=== PATIENT | male | born 1995 | race Caucasian/White ===

== ENCOUNTER 2019-08-14 22:49 | Emergency (ER) | payer SELFPAY ==
[~2019-08-14] VITALS: Ht 170.2 cm; Wt 95.3 kg
[2019-08-14 23:08] VITALS: BP 146/85
--- NOTE | 2019-08-14 23:10 | NUR ---
PT TO [facility].
--- NOTE | 2019-08-15 | NUR ---
PT AMBULATORY TO ER BED 11
--- NOTE | 2019-08-15 01:30 | NUR ---
PT C/O CELLULITS TO LT LOWER BACK X4 DAYS. PT STATES 5/10 BURNING PAIN THAT RADIATES TO LT LEG. PT STATES ITS A COMMON OCCURENCE SO HE TOOK A PREVIOUS ANTIBIOTIC. DENIES FEVER. NO PAIN MEDS TAKEN. PT SITTING IN BED, VSS AT THIS TIME. MEDHX: DENIES ALLERGIES: DENIES
[2019-08-15] MEDS ORDERED: LIDOCAINE/EPI 1% 1:100000 20 ML VIAL INJ ONE (01:35)
--- NOTE | 2019-08-15 03:02 | NUR ---
MEDICATION AT BEDSIDE, TO BE USED BY MD FOR PROCEDURE
[2019-08-15] MEDS ORDERED: ACETAMINOPHEN 325 MG TAB PO ONE (03:20)
[2019-08-15] MEDS ORDERED: IBUPROFEN 600 MG TAB PO ONE (03:20)
--- NOTE | 2019-08-15 03:26 | NUR ---
AT BEDSIDE PERFOMING PROCEDURE.
--- NOTE | 2019-08-15 03:35 | NUR ---
PT TOLERATED PROCEDURE WELL. VSS AT THIS TIME. PT STATES 1/10 PAIN
[2019-08-15 03:55] VITALS: BP 142/86
--- NOTE | 2019-08-15 03:55 | NUR ---
Patient discharged with v/s stable. Written and verbal after care instructions given and explained. Patient alert, oriented and verbalized understanding of instructions. Ambulatory with steady gait. All questions addressed prior to discharge. ID band removed. Patient advised to follow up with PMD. Rx of KEFLEX AND NORCO WAS given. Patient educated on indication of medication including possible reaction and side effects. Opportunity to ask questions provided and answered.
== END 2019-08-15 03:55 | disposition home or self-care (01) ==
LOC: MED 22:49
DX: L02.212 Cutaneous abscess of back [any part, except buttock and flank] (principal); L03.312 Cellulitis of back [any part except buttock and flank]
CPT/HCPCS: 99283; J2001

== ENCOUNTER 2019-12-05 14:47 | Emergency (ER) | payer OTHER ==
[~2019-12-05] VITALS: Ht 172.7 cm; Wt 95.3 kg
[2019-12-05 14:50] VITALS: BP 134/60
--- NOTE | 2019-12-05 14:53 | NUR ---
TO LOBBY A/W BED AMBULATORY
--- NOTE | 2019-12-05 15:26 | NUR ---
Patient ambulated to bed 9. RN evaluating patient at bedside.
--- NOTE | 2019-12-05 15:29 | NUR ---
LUMP ON HIS BACK FOR MONTHS PT FEEL DISCOMFORT WHILE HE WORKING OUT,NO TRAUMA NOR INJURY . DENIES N/V/D; SKIN IS PINK/WARM/DRY; AAOX4 WITH EVEN AND STEADY GAIT; LUNGS CLEAR BL; HR EVEN AND REGULAR; PT DENIES ANY FEVER, CP, SOB, OR COUGH AT THIS TIME; PATIENT STATES PAIN OF 5/10 AT THIS TIME; VSS; PATIENT POSITIONED FOR COMFORT; HOB ELEVATED; BEDRAILS UP X1; BED DOWN. ER MD MADE AWARE OF PT STATUS.
[2019-12-05 16:02] VITALS: BP 134/60
--- NOTE | 2019-12-05 16:02 | NUR ---
Patient discharged with v/s stable. Written and verbal after care instructions given and explained. Patient verbalized understanding. Ambulatory with steady gait. All questions addressed prior to discharge. Advised to follow up with PMD.
== END 2019-12-05 16:02 | disposition home or self-care (01) ==
LOC: MED 14:47
DX: R22.2 Localized swelling, mass and lump, trunk (principal)
CPT/HCPCS: 99281

== ENCOUNTER 2021-10-15 09:29 | Emergency (ER) | payer OTHER ==
[~2021-10-15] VITALS: Ht 172.7 cm; Wt 89.9 kg
[2021-10-15 09:42] VITALS: BP 130/84
--- NOTE | 2021-10-15 09:48 | NUR ---
PATIENT AMBULATED TO BED 2.
[2021-10-15] MEDS ORDERED: ALUMINUM HYD/MAG/SIMETHICONE 30 ML, DICYCLOMINE HCL LIQUID 20 MG, LIDOCAINE VISCOUS 2% ... PO ONE ×3 (10:10)
--- NOTE | 2021-10-15 10:15 | NUR ---
26/M BIB SELF WITH C/O ABDOMINAL PAIN, NAUSEA, VOMITING AND DIARRHEA SINCE THURSDAY. PATIENT STATES SYMPTOMS CAME ON GRADUALLY AND HAVE BEEN WORSENING, STATING HE HAS NOT BEEN ABLE TO EAT OR DRINK USUAL. PATIENT REPORTS TAKING PEPTO AND UNKNOWN MEDICATION FOR DIARRHEA WITH NO RELIEF. REPORTS 6/10 ACHING ABDOMINAL PAIN THAT IS UNPROVOKED AND NONRADIATING, ABDOMEN IS NON TENDER TO TOUCH. PATIENT DENIES CP, SOB, FEVER OR CHILLS.
[2021-10-15] MEDS ORDERED: NACL 0.9% 1,000 ML IV ONE (10:20)
[2021-10-15] MEDS ORDERED: ONDANSETRON 4 MG/2 ML VIAL IVP ONE (10:20)
[2021-10-15] MEDS ORDERED: FAMOTIDINE 20 MG/2 ML VIAL IVP ONE (10:20)
[2021-10-15] MEDS ORDERED: DICYCLOMINE HCL LIQUID 10 MG/5 ML UDC ONE (10:26)
[2021-10-15] MEDS ORDERED: ALUMINUM HYD/MAG/SIMETHICONE 30 ML UDC ONE (10:26)
[2021-10-15 10:35] LABS: BASOPHILS % (AUTO) 0.3 % (0.0-2.0); EOSINOPHILS # (AUTO) 0.2 K/uL (0-0.4); EOSINOPHILS % (AUTO) 3.2 % (0.0-4.0); HEMATOCRIT 46.2 % (36-52); HEMOGLOBIN 15.6 g/dL (12.0-18.0); LYMPHOCYTES # (AUTO) 1.7 K/uL (2.0-11.5); LYMPHOCYTES % (AUTO) 31.9 % (20.5-51.1); MEAN CORPUSCULAR HEMOGLOBIN 30 pg (27-31); MEAN CORPUSCULAR HGB CONC 34 g/dL (33-37); MEAN CORPUSCULAR VOLUME 87.4 fL (80-94); MONOCYTES # (AUTO) 0.4 K/uL (0.8-1.0); MONOCYTES % (AUTO) 8.3 % (1.7-9.3); NEUTROPHILS % (AUTO) 56.3 % (42.2-75.2); PLATELET COUNT (AUTO) 288 K/uL (140-450); RED BLOOD CELL COUNT(AUTO) 5.29 MIL/uL (4.20-6.10); RED CELL DISTRIBUTION WIDTH 13.6 % (11.6-13.7); WHITE BLOOD COUNT (AUTO) 5.4 K/uL (4.8-10.8)
--- NOTE | 2021-10-15 10:50 | NUR ---
SANDI SWAB COLLECTED AND HANDED TO RES COUNSELOR.
[2021-10-15 10:51] LABS: ALBUMIN 3.8 g/dL (3.4-5.0); ANION GAP 11.2 (8-16); CARBON DIOXIDE 29.6 mmol/L (21-32); POTASSIUM 3.8 mmol/L (3.5-5.1); TOTAL BILIRUBIN 0.2 mg/dL (0.0-1.0)
[2021-10-15] MEDS ORDERED: ONDA-188 PO (12:27)
[2021-10-15] MEDS ORDERED: FAMO-90 PO (12:27)
[2021-10-15 12:45] VITALS: BP 120/70
--- NOTE | 2021-10-15 12:45 | NUR ---
Patient discharged with v/s stable. Written and verbal after care instructions ABOUT ABDOMINAL PAIN AND VIRAL ILLNESS given and explained. Patient alert, oriented and verbalized understanding of instructions. Ambulatory with steady gait. All questions addressed prior to discharge. ID band removed. Patient advised to follow up with PMD. Rx of PEPCID AND ZOFRAN ODT given.
[2021-10-15 14:09] LABS: APPEARANCE,URINE BLOODY (CLEAR); BILIRUBIN,URINE NEGATIVE (NEGATIVE); BLOOD, URINE 1+ (NEGATIVE); COLOR,URINE YELLOW (YELLOW); LEUKOCYTE ESTERASE ,URINE NEGATIVE (NEGATIVE); NITRITE, URINE NEGATIVE (NEGATIVE); UGLUCOSE NEGATIVE (NEGATIVE)
[2021-10-15 15:25] LABS: RBC,URINE 11-20 (MOD) /HPF (0-5); WBC,URINE 0-5 /HPF (0-5)
== END 2021-10-15 12:45 | disposition home or self-care (01) ==
LOC: MED 09:29
DX: K52.9 Noninfective gastroenteritis and colitis, unspecified (principal); B34.9 Viral infection, unspecified; R31.9 Hematuria, unspecified; Z20.822 Contact with and (suspected) exposure to COVID-19; Z79.899 Other long term (current) drug therapy
CPT/HCPCS: 36415; 80053; 81001; 83690; 85025; 87426; 96361; 96374; 96375; 99284; J2405; J3490; J7030

== ENCOUNTER 2022-03-31 04:54 | Emergency (ER) | payer OTHER ==
[~2022-03-31] VITALS: Ht 172.7 cm; Wt 98.6 kg
[~2022-03-31 04:54] MED LIST: FAMO-90 PO; ONDA-188 PO
[2022-03-31 05:01] VITALS: BP 130/63
--- NOTE | 2022-03-31 05:05 | NUR ---
PT TAKEN TO BED 09.
--- NOTE | 2022-03-31 05:15 | NUR ---
ER MD AT BEDSIDE EXAMINING PT
--- NOTE | 2022-03-31 05:42 | NUR ---
NO NURSING INTERVENTIONS NEEDED. PT FAVIO
== END 2022-03-31 05:42 | disposition home or self-care (01) ==
LOC: MED 04:54
DX: L67.8 Other hair color and hair shaft abnormalities (principal); Z79.899 Other long term (current) drug therapy
CPT/HCPCS: 99281

== ENCOUNTER 2022-10-06 04:35 | Emergency (ER) | payer OTHER ==
[~2022-10-06] VITALS: Ht 172.7 cm; Wt 97.5 kg
[2022-10-06 04:53] VITALS: BP 135/69
--- NOTE | 2022-10-06 05:11 | NUR ---
Dr. Vaughn examining patient.
--- NOTE | 2022-10-06 06:10 | NUR ---
Blood for labwork drawn from right arm by corporate development intern. Patient tolerated well.
[2022-10-06 06:13] LABS: BASOPHILS % (AUTO) 0.4 % (0.0-2.0); EOSINOPHILS # (AUTO) 0.2 K/uL (0-0.4); EOSINOPHILS % (AUTO) 2.5 % (0.0-4.0); HEMATOCRIT 44.7 % (36-52); LYMPHOCYTES # (AUTO) 2.4 K/uL (2.0-11.5); LYMPHOCYTES % (AUTO) 29.9 % (20.5-51.1); MEAN CORPUSCULAR HEMOGLOBIN 29 pg (27-31); MEAN CORPUSCULAR HGB CONC 34 g/dL (33-37); MEAN CORPUSCULAR VOLUME 86.9 fL (80-94); MONOCYTES # (AUTO) 1.2 K/uL (0.8-1.0); MONOCYTES % (AUTO) 14.3 % (1.7-9.3); NEUTROPHILS # (AUTO) 4.3 K/uL (1.8-7.7); NEUTROPHILS % (AUTO) 52.9 % (42.2-75.2); PLATELET COUNT (AUTO) 250 K/uL (140-450); RED BLOOD CELL COUNT(AUTO) 5.14 MIL/uL (4.20-6.10); RED CELL DISTRIBUTION WIDTH 13.4 % (11.6-13.7); WHITE BLOOD COUNT (AUTO) 8.1 K/uL (4.8-10.8)
[2022-10-06 06:32] LABS: APPEARANCE,URINE CLEAR (CLEAR); BILIRUBIN,URINE NEGATIVE (NEGATIVE); BLOOD, URINE TRACE-I (NEGATIVE); COLOR,URINE YELLOW (YELLOW); LEUKOCYTE ESTERASE ,URINE NEGATIVE (NEGATIVE); NITRITE, URINE NEGATIVE (NEGATIVE); UGLUCOSE NEGATIVE (NEGATIVE)
[2022-10-06 06:43] LABS: WBC,URINE 0-5 /HPF (0-5)
[2022-10-06 06:44] LABS: OTHER CASTS, URINE None Seen /LPF (None Seen)
[2022-10-06 07:02] LABS: ALBUMIN 3.7 g/dL (3.4-5.0); ANION GAP 10.7 (8-16); CARBON DIOXIDE 30.9 mmol/L (21-32); CREATININE 1.2 mg/dL (0.6-1.3); POTASSIUM 3.6 mmol/L (3.5-5.1); TOTAL BILIRUBIN 0.2 mg/dL (0.0-1.0)
[2022-10-06] MEDS ORDERED: DICYCLOMINE 20 MG/2 ML VIAL IM ONE (07:20)
[2022-10-06] MEDS ORDERED: BEN10 PO (07:21)
[2022-10-06 07:45] VITALS: BP 112/72
--- NOTE | 2022-10-06 07:46 | NUR ---
Patient discharged with v/s stable. Written and verbal after care instructions ABOUT DIARRHEA given and explained. Patient alert, oriented and verbalized understanding of instructions. Ambulatory with steady gait. All questions addressed prior to discharge. ID band removed. Patient advised to follow up with PMD. Rx of BENTYL given. Patient educated on indication of medication including possible reaction and side effects. Opportunity to ask questions provided and answered.
== END 2022-10-06 07:46 | disposition home or self-care (01) ==
LOC: MED 04:35
DX: R10.9 Unspecified abdominal pain (principal)
CPT/HCPCS: 36415; 80053; 81001; 83690; 85025; 96372; 99283; J0500

== ENCOUNTER 2023-03-18 12:05 | Emergency (ER) | payer OTHER ==
[~2023-03-18] VITALS: Ht 172.7 cm; Wt 100.8 kg
[~2023-03-18 12:05] MED LIST changes: +BEN10 PO
[2023-03-18 12:15] VITALS: BP 130/84
--- NOTE | 2023-03-18 13:06 | NUR ---
RESTING IN BED, EXAM DONE BY MID LEVEL PROVIDER
[2023-03-18 13:10] LABS: BASOPHILS % (AUTO) 0.6 % (0.0-2.0); EOSINOPHILS # (AUTO) 0.1 K/uL (0-0.4); EOSINOPHILS % (AUTO) 1.4 % (0.0-4.0); HEMATOCRIT 45.5 % (36-52); HEMOGLOBIN 15.1 g/dL (12.0-18.0); LYMPHOCYTES # (AUTO) 3.2 K/uL (2.0-11.5); LYMPHOCYTES % (AUTO) 44.7 % (20.5-51.1); MEAN CORPUSCULAR HEMOGLOBIN 29 pg (27-31); MEAN CORPUSCULAR HGB CONC 33 g/dL (33-37); MEAN CORPUSCULAR VOLUME 86.6 fL (80-94); MONOCYTES # (AUTO) 0.7 K/uL (0.8-1.0); MONOCYTES % (AUTO) 9.2 % (1.7-9.3); NEUTROPHILS # (AUTO) 3.1 K/uL (1.8-7.7); NEUTROPHILS % (AUTO) 44.1 % (42.2-75.2); PLATELET COUNT (AUTO) 264 K/uL (140-450); RED BLOOD CELL COUNT(AUTO) 5.26 MIL/uL (4.20-6.10); RED CELL DISTRIBUTION WIDTH 13.4 % (11.6-13.7); WHITE BLOOD COUNT (AUTO) 7.1 K/uL (4.8-10.8)
[2023-03-18] MEDS ORDERED: DOCU-299 PO (13:25)
[2023-03-18] MEDS ORDERED: ACET-10509 PO (13:25)
[2023-03-18 13:50] LABS: ALBUMIN 4.3 g/dL (3.4-5.0); CARBON DIOXIDE 29.1 mmol/L (21-32); CREATININE 1.4 mg/dL (0.6-1.3); POTASSIUM 4.1 mmol/L (3.5-5.1); TOTAL BILIRUBIN 0.4 mg/dL (0.0-1.0)
--- NOTE | 2023-03-18 14:35 | NUR ---
Patient discharged with v/s stable. Written and verbal after care instructions FOR RECTAL BLEEDING given and explained. Patient alert, oriented and verbalized understanding of instructions. Ambulatory with steady gait. All questions addressed prior to discharge. ID band removed. Patient advised to follow up with PMD. Rx of TYLENOL XTRA STRENGTH AND COLACE given. Opportunity to ask questions provided and answered.
== END 2023-03-18 14:35 | disposition home or self-care (01) ==
LOC: MED 12:05
DX: K62.5 Hemorrhage of anus and rectum (principal); Z79.899 Other long term (current) drug therapy
CPT/HCPCS: 36415; 80053; 85025; 99283

== ENCOUNTER 2024-03-22 20:33 | Emergency (ER) | payer OTHER ==
[~2024-03-22] VITALS: Ht 170.2 cm; Wt 104.3 kg
[~2024-03-22 20:33] MED LIST changes: +ACET-10509 PO; +DOCU-299 PO
[2024-03-22 20:40] VITALS: BP 139/82; PULSE 109; RESP 16; TEMP 97; O2SAT 100
[2024-03-22 21:06] VITALS: BP 132/82; PULSE 98; RESP 18; TEMP 97
[2024-03-22 21:07] VITALS: O2SAT 100
[2024-03-22] MEDS: NACL 0.9% 1,000 ML IV ONE (21:08)
[2024-03-22 21:19] LABS: BASOPHILS % (AUTO) 0.4 % (0.0-2.0); EOSINOPHILS # (AUTO) 0.2 K/uL (0-0.4); EOSINOPHILS % (AUTO) 1.7 % (0.0-4.0); HEMATOCRIT 40.4 % (36-52); HEMOGLOBIN 13.6 g/dL (12.0-18.0); LYMPHOCYTES # (AUTO) 2.5 K/uL (2.0-11.5); LYMPHOCYTES % (AUTO) 21.9 % (20.5-51.1); MEAN CORPUSCULAR HEMOGLOBIN 29 pg (27-31); MEAN CORPUSCULAR HGB CONC 34 g/dL (33-37); MEAN CORPUSCULAR VOLUME 86.3 fL (80-94); MONOCYTES # (AUTO) 0.7 K/uL (0.8-1.0); MONOCYTES % (AUTO) 6.5 % (1.7-9.3); NEUTROPHILS # (AUTO) 7.9 K/uL (1.8-7.7); NEUTROPHILS % (AUTO) 69.5 % (42.2-75.2); PLATELET COUNT (AUTO) 257 K/uL (140-450); RED BLOOD CELL COUNT(AUTO) 4.69 MIL/uL (4.20-6.10); RED CELL DISTRIBUTION WIDTH 13.6 % (11.6-13.7); WHITE BLOOD COUNT (AUTO) 11.4 K/uL (4.8-10.8)
[2024-03-22 21:20] LABS: APPEARANCE,URINE CLEAR (CLEAR); BILIRUBIN,URINE NEGATIVE (NEGATIVE); BLOOD, URINE NEGATIVE (NEGATIVE); COLOR,URINE YELLOW (YELLOW); LEUKOCYTE ESTERASE ,URINE NEGATIVE (NEGATIVE); NITRITE, URINE NEGATIVE (NEGATIVE); PROTEIN,URINE NEGATIVE (NEGATIVE); UGLUCOSE TRACE (NEGATIVE); UROBILINOGEN,URINE 0.2 EU/dL (0.2 - 1)
[2024-03-22 21:30] LABS: AMPHETAMINE, URINE NEGATIVE ng/ml (NEG <=1000); BARBITURATE, URINE NEGATIVE ng/ml (NEG <=200); BENZODIAZEPINE, URINE NEGATIVE ng/mL (NEG <=200)
[2024-03-22 21:31] LABS: CANNABINOID, URINE NEGATIVE ng/mL (NEG <=50); COCAINE, URINE NEGATIVE ng/mL (NEG <=300); OPIATE, URINE NEGATIVE ng/mL (NEG <=2000); PHENCYCLIDINE SCREEN,URINE NEGATIVE ng/mL (NEG <=25)
[2024-03-22 21:38] LABS: ALBUMIN 4.1 g/dL (3.4-5.0); ANION GAP 17.7 (8-16); CALCIUM 8.9 mg/dL (8.5-10.1); CARBON DIOXIDE 20.9 mmol/L (21-32); CREATININE 1.3 mg/dL (0.6-1.3); POTASSIUM 3.6 mmol/L (3.5-5.1); TOTAL BILIRUBIN 0.4 mg/dL (0.0-1.0); TOTAL PROTEIN, SERUM 7.1 g/dL (6.4-8.2)
== END 2024-03-22 23:20 | disposition home or self-care (01) ==
LOC: MED 20:33
DX: R00.2 Palpitations (principal); R07.89 Other chest pain; R06.02 Shortness of breath; Z79.899 Other long term (current) drug therapy
CPT/HCPCS: 36415; 80053; 80305; 81003; 85025; 93005; 96360; 99284; J7030

== ENCOUNTER 2024-07-08 19:42 | Emergency (ER) | payer OTHER ==
[~2024-07-08] VITALS: Ht 172.7 cm; Wt 95.3 kg
[~2024-07-08 19:42] MED LIST changes: -ACET-10509 PO; +ACET500T99 PO
[2024-07-08 19:54] VITALS: BP 151/73; PULSE 90; RESP 16; TEMP 98.5; O2SAT 98
--- NOTE | 2024-07-08 20:05 | NUR ---
TO BED 6 FOLLOWING TRIAGE
--- NOTE | 2024-07-08 20:25 | NUR ---
SEEN AND EXAMINED BY BRI HERNANDEZ, WITH ORDERS , CARRIED OUT
[2024-07-08] MEDS ORDERED: ONDA-188 PO (20:29)
[2024-07-08] MEDS ORDERED: MAG-27 PO (20:29)
[2024-07-08] MEDS ORDERED: IMO2 PO (20:29)
--- NOTE | 2024-07-08 21:00 | NUR ---
MEDICATED PER BRI HERNANDEZ, TOLERATED WELL
[2024-07-08] MEDS: LOPERAMIDE 2 MG CAP PO ONE (21:02)
[2024-07-08] MEDS: ONDANSETRON 4 MG ODT PO ONE (21:03)
[2024-07-08 21:10] VITALS: BP 130/73; PULSE 82; RESP 16; TEMP 98.5; O2SAT 98
--- NOTE | 2024-07-08 21:32 | NUR ---
Written and verbal after care instructions given and explained. Patient alert, oriented and verbalized understanding of instructions. Ambulatory with steady gait. All questions addressed prior to discharge. ID band removed. Patient advised to follow up with PMD. Rx given. Patient educated on indication of medication including possible reaction and side effects. Opportunity to ask questions provided and answered.
== END 2024-07-08 21:32 | disposition home or self-care (01) ==
LOC: MED 19:42
DX: R19.7 Diarrhea, unspecified (principal); R10.13 Epigastric pain; R03.0 Elevated blood-pressure reading, without diagnosis of hypertension; Z79.899 Other long term (current) drug therapy
CPT/HCPCS: 99283; Q0162